=== PATIENT | male | born 1945 | race Caucasian/White ===

== ENCOUNTER 2023-12-11 08:55 | Emergency (ER) | payer MEDICARE ==
[~2023-12-11] VITALS: Ht 182.9 cm; Wt 99.8 kg
[2023-12-11 08:55] VITALS: BP_SYST 160; PULSE 64; RESP 19; TEMP 97; O2SAT 99
[2023-12-11 10:34] VITALS: BP_SYST 150; PULSE 76; RESP 17; TEMP 98.2; O2SAT 97
== END 2023-12-11 10:32 ==
LOC: SED 08:55
DX: E11.65 Type 2 diabetes mellitus with hyperglycemia (principal); I10 Essential (primary) hypertension
CPT/HCPCS: 99283